=== PATIENT | female | born 1995 | race Caucasian/White ===

== ENCOUNTER 2017-04-30 20:37 | Emergency (ER) | payer OTHER ==
[2017-04-30 21:35] VITALS: BP 141/93
== END 2017-04-30 21:35 | disposition home or self-care (01) ==
LOC: ED 20:37
DX: H66.91 Otitis media, unspecified, right ear (principal)

== ENCOUNTER 2017-05-31 14:46 | Emergency (ER) | payer OTHER ==
[~2017-05-31] VITALS: Ht 160 cm; Wt 65.9 kg
[2017-05-31 15:36] LABS: BASOPHIL % 0.5 % (0-2); PLATELET COUNT 386 x10^3mcL (130-400); RED CELL DISTRIBUTION WIDTH 13.2 % (11.5-14.5)
[2017-05-31 15:43] VITALS: BP 115/70
[2017-05-31 15:48] LABS: CALCIUM 9.1 mg/dL (8.5-10.1); CARBON DIOXIDE 26.1 mmol/L (21-32); CHLORIDE SERUM 102 mmol/L (98-107); CREATININE SERUM 0.9 mg/dL (0.6-1.0); GFR1 > 60 mL/min; GLUCOSE SERUM 87 mg/dL (74-106); POTASSIUM SERUM 3.7 mmol/L (3.5-5.1); SODIUM SERUM 137 mmol/L (136-145)
[2017-05-31 15:53] LABS: ALBUMIN 3.8 g/dL (3.4-5.0); ALKALINE PHOSPHATASE 75 U/L (46-116); ALT/SGPT 77 U/L (14-59); AMYLASE 48 U/L (25-115); AST/SGOT 44 U/L (15-37); BILIRUBIN TOTAL 0.26 mg/dL (0.20-1.00); LIPASE 112 IU/L (73-393)
== END 2017-05-31 18:12 | disposition home or self-care (01) ==
LOC: ED 14:46
PROVIDERS: Emergency Medicine
DX: K00.0 Anodontia (principal)
CPT/HCPCS: 83880; J2405; J3010; J7030; Q9967

== ENCOUNTER 2018-02-05 20:45 | Emergency (ER) | payer OTHER ==
[~2018-02-05] VITALS: Ht 167.6 cm; Wt 76.7 kg
[2018-02-05 21:19] VITALS: Ht 167.6 cm; Wt 76.7 kg
[2018-02-06 00:27] LABS: BASOPHIL % 0.3 % (0-2); PLATELET COUNT 308 x10^3mcL (130-400); RED CELL DISTRIBUTION WIDTH 12.7 % (11.5-14.5)
[2018-02-06 00:34] LABS: CALCIUM 8.6 mg/dL (8.5-10.1); CARBON DIOXIDE 27.8 mmol/L (21-32); CHLORIDE SERUM 102 mmol/L (98-107); CREATININE SERUM 0.8 mg/dL (0.6-1.0); GFR1 > 60 mL/min; GLUCOSE SERUM 92 mg/dL (74-106); POTASSIUM SERUM 3.6 mmol/L (3.5-5.1); SODIUM SERUM 138 mmol/L (136-145)
[2018-02-06 00:59] LABS: ALKALINE PHOSPHATASE 66 U/L (46-116); AST/SGOT 26 U/L (15-37); BILIRUBIN TOTAL 0.2 mg/dL (0.20-1.00); TOTAL PROTEIN, SERUM 7.8 g/dL (6.4-8.2)
[2018-02-06 01:01] LABS: ALBUMIN 3.2 g/dL (3.4-5.0)
[2018-02-06 01:09] LABS: ALT/SGPT 35 U/L (14-59)
[2018-02-06 03:25] VITALS: BP 111/62
== END 2018-02-06 03:25 | disposition home or self-care (01) ==
LOC: ED 20:45
PROVIDERS: Emergency Medicine
DX: R51 Headache (principal); R42 Dizziness and giddiness; R11.0 Nausea
CPT/HCPCS: J2270; J2765; Q0163

== ENCOUNTER 2018-07-31 14:21 | Emergency (ER) | payer OTHER ==
[~2018-07-31] VITALS: Ht 162.6 cm; Wt 62.1 kg
[2018-07-31 14:34] VITALS: Ht 162.6 cm; Wt 62.1 kg
[2018-07-31 17:04] VITALS: BP 115/79
== END 2018-07-31 17:04 | disposition home or self-care (01) ==
LOC: ED 14:21
DX: S39.012A Strain of muscle, fascia and tendon of lower back, initial encounter (principal); Z88.5 Allergy status to narcotic agent; X50.9XXA Other and unspecified overexertion or strenuous movements or postures, initial encounter; Y99.8 Other external cause status; Y92.89 Other specified places as the place of occurrence of the external cause; Y93.89 Activity, other specified
CPT/HCPCS: J1885